=== PATIENT | male | born 1945 | race Two or more races ===

== ENCOUNTER 2018-08-06 08:40 | Outpatient (CLI) | payer OTHER | END 2018-08-06 09:01 | disposition home or self-care (01) | LOC: TOM 08:40 | DX: N40.0 Benign prostatic hyperplasia without lower urinary tract symptoms (principal) | CPT/HCPCS: 74178; Q9965 ==

== ENCOUNTER 2019-06-30 07:22 | Outpatient (CLI) | payer OTHER | END 2019-06-30 07:26 | disposition home or self-care (01) | LOC: SONOGRAMA 07:22 → MAMO-SONO 07:45 | DX: N40.1 Benign prostatic hyperplasia with lower urinary tract symptoms (principal) ==

== ENCOUNTER 2022-09-17 06:37 | Emergency (ER) | payer OTHER ==
[~2022-09-17] VITALS: Ht 165.1 cm; Wt 57.2 kg
[2022-09-18] MEDS ORDERED: TAMS0.4C PO (20:17)
== END 2022-09-17 10:55 | disposition home or self-care (01) ==
LOC: ER 06:37
DX: N40.1 Benign prostatic hyperplasia with lower urinary tract symptoms (principal); R31.0 Gross hematuria

== ENCOUNTER 2022-09-18 20:01 | Emergency (ER) | payer OTHER ==
[~2022-09-18] VITALS: Ht 165.1 cm; Wt 57.2 kg
[2022-09-18] MEDS ORDERED: TAMS0.4C PO (20:17)
== END 2022-09-19 00:06 | disposition home or self-care (01) ==
LOC: ER 20:01
DX: N20.9 Urinary calculus, unspecified (principal)

== ENCOUNTER 2023-01-24 08:35 | Outpatient (CLI) | payer OTHER ==
[~2023-01-24 08:35] MED LIST: TAMS0.4C PO
== END 2023-01-24 08:37 | disposition home or self-care (01) ==
LOC: NUCLEAR 08:35
PROVIDERS: ATTEND Internal Medicine Geriatric Medicine
DX: I11.9 Hypertensive heart disease without heart failure (principal)

== ENCOUNTER 2023-09-08 15:30 | Emergency (ER) | payer OTHER ==
[~2023-09-08] VITALS: Ht 165.1 cm; Wt 58.1 kg
[2023-09-08] MEDS ORDERED: FLOVENT HFA10.6 GM (17:30)
[2023-09-08] MEDS ORDERED: NIFEDIPINE20 MG (17:30)
[2023-09-08] MEDS ORDERED: VITAL-D RX TAB1 EACH (17:31)
[2023-09-08] MEDS ORDERED: TAMS0.4C (17:31)
[2023-09-08] MEDS ORDERED: ACID REDUCER20 M1 (17:31)
[2023-09-08 21:59] LABS: PH,URINE 5.5 (5.0-8.0); URINE APPEARANCE Clear; URINE BILIRRUBIN Small (NEGATIVE); URINE BLOOD Negative; URINE COLOR Dark Yellow; URINE GLUCOSE Negative (NEGATIVE); URINE LEUKOCYTE Trace; URINE NITRATE Positive; URINE PROTEIN Negative (NEGATIVE)
[2023-09-08 22:02] LABS: URINE BACTERIA 8.8 uL (0.0-1933); URINE EPITHELIAL CELLS 1.8 uL (0.0-38.8); URINE RBC 15.3 uL (0.0-20.8)
== END 2023-09-08 23:15 | disposition home or self-care (01) ==
LOC: ER 15:30
PROVIDERS: Emergency Medicine
DX: N39.0 Urinary tract infection, site not specified (principal); I10 Essential (primary) hypertension
CPT/HCPCS: 36415; 96372; 99282; J0696

== ENCOUNTER → 2024-04-01 06:35 | Outpatient (CLI) | payer OTHER ==
[~2024-04-01 06:35] MED LIST changes: +ACID REDUCER20 M1; +ASA81 MG; +FLOVENT HFA10.6 GM; +NIFEDIPINE20 MG; +TAMS0.4C; +VITAL-D RX TAB1 EACH
[2024-04-01 08:00] LABS: HEMATOCRIT 39.4 % (39.0-48.0); HEMOGLOBIN 13.8 g/dL (13-16.00); MEAN CELL VOLUME 88.8 fL (80.0-100.00); MEAN CORPUSCULAR HGB CONC 34.9 g/dl (32.0-36.0); PLATELET COUNT 208 K/uL (150-450); RED BLOOD COUNT 4.44 M/uL (4.00-6.00); RED CELL DISTRIBUTION WIDTH 13.5 % (11.5-14.5)
[2024-04-01 08:55] LABS: BILIRUBIN TOTAL 0.66 mg/dL (0.3-1.2); CREATININE SERUM 0.64 mg/dL (0.70-1.30); FERRITIN 57.4 NG/ML (26-388); GFR 121.27; GLOBULINA 2.7 G/DL (2.4-3.5); POTASSIUM 3.86 mEq/L (3.5-5.1); PROSTATIC SPECIFIC ANTIGEN 3.81 NG/ML (0.010-4.00); T4 FREE 0.94 NG/ML (0.76-1.46); TOTAL PROTEIN 6.7 gm/dL (6.4-8.2); TSH 1.7 uIU/mL (0.358-3.74)
[2024-04-01 12:53] LABS: FOLIC ACID > 20.00 ng/ml (4.78-20)
[2024-04-02 14:47] LABS: MANUAL PLATELET COUNT 420
[2024-04-02 14:48] LABS: PLATELET ESTIMATE NORMAL (NORMAL)
[2024-04-03 07:06] LABS: TRANSFERIN 276 mg/dL (177-329)
[2024-04-03 09:10] LABS: ANTI THYROID PEROXIDASE < 9 IU/mL (0-34)
[2024-04-03 13:11] LABS: hgb a 97.6 % (96.4-98.8); hgb a2 2.4 % (1.8-3.2); hgb f 0 % (0.0-2.0); hgb s 0 % (0.0)
[2024-04-04 15:05] LABS: g6pd quant 275 (127-427)
[2024-04-04 17:09] LABS: INTRINSIC FACTOR BLOCKING AB 1.1 AU/mL (0.0-1.1)
[2024-04-05 09:05] LABS: PARIETAL CELL ANTIBODIES 67.6 Units (0.0-20.0)
== END | disposition home or self-care (01) ==
LOC: LAB 06:35
PROVIDERS: ATTEND Internal Medicine Hematology & Oncology
DX: D51.3 Other dietary vitamin B12 deficiency anemia (principal); I10 Essential (primary) hypertension; E78.2 Mixed hyperlipidemia; K29.70 Gastritis, unspecified, without bleeding; N40.1 Benign prostatic hyperplasia with lower urinary tract symptoms; D50.8 Other iron deficiency anemias; R79.9 Abnormal finding of blood chemistry, unspecified; R74.02 Elevation of levels of lactic acid dehydrogenase [LDH]; K76.89 Other specified diseases of liver; E06.3 Autoimmune thyroiditis; R97.0 Elevated carcinoembryonic antigen [CEA]

== ENCOUNTER 2024-04-01 10:19 | Outpatient (CLI) | payer OTHER | END 2024-04-01 10:21 | disposition home or self-care (01) | LOC: SONOGRAMA 10:19 | PROVIDERS: ATTEND Pathology Anatomic Pathology | DX: D34 Benign neoplasm of thyroid gland (principal); E07.89 Other specified disorders of thyroid; E04.1 Nontoxic single thyroid nodule ==

== ENCOUNTER 2024-07-16 08:38 | Outpatient (CLI) | payer OTHER | END 2024-07-16 08:40 | disposition home or self-care (01) | LOC: SONOGRAMA 08:38 | PROVIDERS: ATTEND Urology | DX: N39.0 Urinary tract infection, site not specified (principal); N40.0 Benign prostatic hyperplasia without lower urinary tract symptoms; N40.1 Benign prostatic hyperplasia with lower urinary tract symptoms; Z12.5 Encounter for screening for malignant neoplasm of prostate; N52.02 Corporo-venous occlusive erectile dysfunction ==